=== PATIENT | female | born 1965 | race Two or more races ===

== ENCOUNTER 2016-09-06 21:02 | Emergency (ER) | payer MEDICAID, OTHER ==
[~2016-09-06] VITALS: Ht 152.4 cm; Wt 108.9 kg
[2016-09-06 21:25] VITALS: BP 213/82
[2016-09-06] MEDS ORDERED: cloNIDine HCL 0.1 MG TAB PO ONE (22:00)
[2016-09-06 23:23] LABS: INR 1.02 (0.9-1.15); Partial Thromboplastin Time 28.6 sec (22.64-33.71); Prothrombin Time 10.5 sec (9.37-12.3)
[2016-09-06 23:26] LABS: Albumin 2.4 g/dL (3.4-5.0); BUN/Creatinine Ratio 8.7; Calcium 7.5 mg/dL (8.5-10.1); Potassium 4.1 mmol/L (3.5-5.1)
[2016-09-06 23:28] LABS: Bilirubin, Total 0.2 mg/dL (0.2-1.0); Total Protein 7.6 g/dL (6.4-8.2)
[2016-09-06 23:30] LABS: Basophils # (auto) 0 uL; Basophils % (auto) 0.4 % (0.0-2.0); Eosinophils # (auto) 0.2 uL; Hematocrit 36.8 % (36.0-46.0); Hemoglobin 11.5 g/dL (12.2-16.2); Lymphocytes # (auto) 2.4 uL; Lymphocytes % (auto) 24.9 % (10.0-50.0); Mean Corpuscular Hemoglobin 28.4 pg (28.0-32.0); Mean Corpuscular Hgb Conc. 31.4 g/dL (32.0-36.0); Mean Corpuscular Volume 90.4 fL (80.0-100.0); Monocytes # (auto) 0.5 uL; Monocytes % (auto) 5.5 % (0.0-12.0); Neutrophils # (auto) 6.5 uL; Neutrophils % (auto) 67.2 % (37.0-80.0); Platelet Count (auto) 294 10^3/uL (140-450); Red Cell Distribution Width 16.3 % (11.6-16.0); White Blood Cell 9.7 10^3/uL (4.4-10.8)
== END 2016-09-07 03:45 | disposition left against medical advice (07) ==
LOC: ER 21:09
DX: R79.89 Other specified abnormal findings of blood chemistry (principal); Z53.21 Procedure and treatment not carried out due to patient leaving prior to being seen by health care provider
CPT/HCPCS: 36415; 80053; 82140; 85025; 85610; 85730

== ENCOUNTER 2018-11-01 01:07 | Inpatient (IN) | payer MEDICAID ==
[~2018-11-01] VITALS: Ht 152.4 cm; Wt 139.0 kg
[2018-11-01] MEDS ORDERED: cloNIDine HCL 0.1 MG TAB PO ONE (02:30)
[2018-11-01 03:03] LABS: Basophils # (auto) 0.1 uL; Basophils % (auto) 0.5 % (0.0-2.0); Eosinophils # (auto) 0.2 uL; Eosinophils % (auto) 1.6 % (0.0-7.0); Hematocrit 33.6 % (36.0-46.0); Hemoglobin 10.6 g/dL (12.2-16.2); Lymphocytes # (auto) 1.6 uL; Lymphocytes % (auto) 15.3 % (10.0-50.0); Mean Corpuscular Hemoglobin 30.8 pg (28.0-32.0); Mean Corpuscular Hgb Conc. 31.6 g/dL (32.0-36.0); Mean Corpuscular Volume 97.5 fL (80.0-100.0); Monocytes # (auto) 0.5 uL; Monocytes % (auto) 4.6 % (0.0-12.0); Neutrophils # (auto) 8.3 uL; Nucleated Red Blood Cells % 0.1 %; Platelet Count (auto) 233 10^3/uL (140-450); Red Blood Cells 3.44 10^6/uL (4.0-5.20); Red Cell Distribution Width 15.6 % (11.8-14.3); White Blood Cell 10.7 10^3/uL (4.4-10.8)
[2018-11-01 03:19] LABS: INR 0.94 (0.9-1.15); Partial Thromboplastin Time 28.2 sec (23.78-33.04); Prothrombin Time 10.1 sec (9.27-12.13)
[2018-11-01 03:22] LABS: Albumin 3.2 g/dL (3.4-5.0); Amylase 48 U/L (25-115); Anion Gap 8 (5-15); Blood Urea Nitrogen 51 mg/dL (7-18); Calcium 7.3 mg/dL (8.5-10.1); Carbon Dioxide 23 mmol/L (21-32); Chloride 105 mmol/L (98-107); Glucose 259 mg/dL (74-106); Lipase 140 U/L (73-393); Magnesium 2.7 mg/dL (1.6-2.6); Sodium 136 mmol/L (136-145)
[2018-11-01 03:28] LABS: Alanine Aminotransferase 25 U/L (13-56); Alkaline Phosphatase 112 U/L (45-117); Aspartate Aminotransferase 15 U/L (15-37); BUN/Creatinine Ratio 7.4; Bilirubin, Total 0.3 mg/dL (0.2-1.0); GFR African American 8 mL/min; GFR Non-African American 7 mL/min
[2018-11-01 03:34] LABS: Potassium 6.1 mmol/L (3.5-5.1)
[2018-11-01] MEDS ORDERED: ALBUTEROL SULF 2.5 MG/0.5ML(0.5%) NEB SOLN NEB STA (06:53)
[2018-11-01] MEDS ORDERED: SODIUM BICARBONATE 8.4% INJ 50ML SYRINGE IV ONE (07:00)
[2018-11-01] MEDS ORDERED: SODIUM POLYSTYRENE SULF 15GM/60ml SUSP or POWDER PO ONE ×3 (07:00→11:45)
[2018-11-01] MEDS ORDERED: PIPERACILLIN-TAZOB 3.375GM 100 ML IV ONE (07:00)
[2018-11-01] MEDS ORDERED: AZITHROMYCIN 500MG/ 250ML 250 ML IV ONE (07:00)
[2018-11-01] MEDS ORDERED: InsuLIN REG 1unit/0.01ml Soln (100units/ml) IV ONE ×2 (07:00→10:15)
[2018-11-01] MEDS ORDERED: DEXTROSE (50%) 50ML SYRG IV ONE ×2 (07:00→10:15)
[2018-11-01] MEDS ORDERED: CALCIUM GLUC 4.65meq/50ml D5AE 50 ML IV ONE (07:00)
[2018-11-01] MEDS ORDERED: HYDROcodone-ACET 5/325MG TAB PO PRN (09:30)
[2018-11-01] MEDS ORDERED: ACETAMINOPHEN 500 MG TAB PO PRN (09:30)
[2018-11-01] MEDS ORDERED: MORPHINE SULF INJ 2 MG/ML SYRINGE 1ML IV PRN (09:30)
[2018-11-01] MEDS ORDERED: AZITHROMYCIN 250 MG TAB PO ONE (09:30)
[2018-11-01] MEDS ORDERED: NITROGLYCERIN 0.4 MG SL TAB SL PRN (09:30)
[2018-11-01] MEDS ORDERED: hydrALAZINE HCL 20 MG/ML VL IV PRN (09:45)
[2018-11-01 09:59] LABS: BUN/Creatinine Ratio 7.3; Calcium 7.5 mg/dL (8.5-10.1)
[2018-11-01] MEDS ORDERED: LISINOPRIL 10 MG TAB PO SCH (10:00)
[2018-11-01] MEDS ORDERED: SODIUM BICARBONATE 8.4 % INJ 50ML VIAL IV ONE (10:15)
[2018-11-01] MEDS ORDERED: LEVOTHYROXINE SODIUM 100 MCG TAB PO ONE (10:15)
[2018-11-01] MEDS ORDERED: ALBUTEROL SULF 2.5 MG/0.5ML(0.5%) NEB SOLN NEB ONE (10:15)
[2018-11-01] MEDS: METOPROLOL TARTRATE 25 MG TAB PO SCH ×3 (10:26→22:45)
[2018-11-01] MEDS: PANTOPRAZOLE 40 MG/10 ML VIAL IV SCH (10:26)
[2018-11-01] MEDS: cefTRIAXone 1GM/50ML D5W 50 ML IV SCH (10:26)
[2018-11-01 10:40] VITALS: BP 151/73
[2018-11-01] MEDS ORDERED: SODIUM ZIRCONIUM CYCL 10 GM PAK PO ONE (11:45)
[2018-11-01] MEDS: CALCIUM ACETATE 667 MG CAP PO SCH ×2 (12:15→18:00)
[2018-11-01 12:27] LABS: Urine Amorphous Crystal FEW /hpf (None Seen); Urine Bacteria FEW /hpf (None Seen); Urine Blood Negative /uL (Negative); Urine Specific Gravity 1.013 (1.001-1.035); Urine WBC 4 /hpf (0 - 5)
[2018-11-01] MEDS: IPRATROPIUM BROM 0.5 MG/2.5ML INH SOL NEB SCH ×2 (12:56→18:00)
[2018-11-01] MEDS: ALBUTEROL SULF 2.5 MG/0.5ML(0.5%) NEB SOLN NEB SCH ×2 (12:56→18:00)
[2018-11-01] MEDS: MORPHINE SULF INJ 2 MG/ML SYRINGE 1ML IV PRN (14:44)
[2018-11-01] MEDS: ONDANSETRON HCL 4 MG/2 ML VIAL IV PRN (14:45)
[2018-11-01] MEDS ORDERED: SODIUM CHL 0.9% 1000 ML BAG XX ONE (16:15)
[2018-11-01] MEDS ORDERED: EPOETIN ALFA 10,000 UNIT/1 ML VIAL SC ONE (21:00)
[2018-11-01] MEDS: ATORVASTATIN 20 MG TAB PO SCH (22:00)
[2018-11-02 01:15] LABS: BUN/Creatinine Ratio 6.4; Calcium 7.3 mg/dL (8.5-10.1); Potassium 5.5 mmol/L (3.5-5.1)
[2018-11-02] MEDS ORDERED: CINA30TA2 PO (05:38)
[2018-11-02] MEDS ORDERED: BENA10TA9 PO (05:38)
[2018-11-02] MEDS ORDERED: SEVE800T PO (05:38)
[2018-11-02] MEDS ORDERED: HYDR50TA15 PO (05:38)
[2018-11-02] MEDS ORDERED: ERGO2000 PO (05:38)
[2018-11-02] MEDS ORDERED: LEVO175T31 PO (05:38)
[2018-11-02] MEDS ORDERED: ATOR40TA52 PO (05:38)
[2018-11-02] MEDS ORDERED: FURO20TA3 PO (05:38)
[2018-11-02] MEDS ORDERED: GLIM2TAB33 PO (05:38)
[2018-11-02] MEDS ORDERED: SEVE800T8 PO (05:38)
[2018-11-02 05:44] VITALS: BP 142/69
[2018-11-02] MEDS ORDERED: BISA-51 PO (05:45)
[2018-11-02] MEDS: ALBUTEROL SULF 2.5 MG/0.5ML(0.5%) NEB SOLN NEB SCH ×4 (06:39→22:16)
[2018-11-02] MEDS: IPRATROPIUM BROM 0.5 MG/2.5ML INH SOL NEB SCH ×3 (06:39→18:45)
[2018-11-02] MEDS: LEVOTHYROXINE SODIUM 100 MCG TAB PO SCH (06:45)
[2018-11-02] MEDS: MORPHINE SULF INJ 2 MG/ML SYRINGE 1ML IV PRN ×2 (06:52→20:13)
[2018-11-02 08:30] VITALS: BP 149/73
[2018-11-02] MEDS: PANTOPRAZOLE 40 MG/10 ML VIAL IV SCH (09:29)
[2018-11-02] MEDS: CALCIUM ACETATE 667 MG CAP PO SCH ×3 (09:29→18:09)
[2018-11-02] MEDS: METOPROLOL TARTRATE 25 MG TAB PO SCH ×2 (09:29→23:34)
[2018-11-02] MEDS: cefTRIAXone 1GM/50ML D5W 50 ML IV SCH (09:29)
[2018-11-02] MEDS ORDERED: SODIUM ZIRCONIUM CYCL 10 GM PAK PO ONE ×3 (10:00→15:15)
[2018-11-02] MEDS ORDERED: AZITHROMYCIN 250 MG TAB PO SCH (10:00)
[2018-11-02 11:15] LABS: Basophils # (auto) 0 uL; Basophils % (auto) 0.3 % (0.0-2.0); Eosinophils # (auto) 0.1 uL; Eosinophils % (auto) 1.6 % (0.0-7.0); Hematocrit 28.7 % (36.0-46.0); Hemoglobin 9.4 g/dL (12.2-16.2); Lymphocytes # (auto) 0.7 uL; Lymphocytes % (auto) 9.3 % (10.0-50.0); Mean Corpuscular Hemoglobin 31.8 pg (28.0-32.0); Mean Corpuscular Hgb Conc. 32.8 g/dL (32.0-36.0); Mean Corpuscular Volume 97.1 fL (80.0-100.0); Monocytes # (auto) 0.3 uL; Monocytes % (auto) 3.7 % (0.0-12.0); Neutrophils # (auto) 6.3 uL; Neutrophils % (auto) 85.1 % (37.0-80.0); Platelet Count (auto) 184 10^3/uL (140-450); Red Blood Cells 2.96 10^6/uL (4.0-5.20); Red Cell Distribution Width 15.6 % (11.8-14.3); White Blood Cell 7.4 10^3/uL (4.4-10.8)
[2018-11-02 11:31] LABS: BUN/Creatinine Ratio 6.6; Calcium 7.4 mg/dL (8.5-10.1)
[2018-11-02 11:52] LABS: Cholesterol 116 mg/dL (< 200); HDL Cholesterol 48 mg/dL (40-59); LDL Cholesterol 55 mg/dL (< 100); Triglycerides 161 mg/dL (< 150)
[2018-11-02 12:13] LABS: Potassium 6.4 mmol/L (3.5-5.1)
[2018-11-02 12:59] VITALS: BP 137/63
[2018-11-02] MEDS ORDERED: ALBUTEROL SULF 2.5 MG/0.5ML(0.5%) NEB SOLN NEB ONE (13:15)
[2018-11-02] MEDS ORDERED: SODIUM BICARBONATE 8.4% INJ 50ML SYRINGE IV ONE (13:15)
[2018-11-02] MEDS ORDERED: DEXTROSE (50%) 50ML SYRG IV ONE ×2 (13:15→17:15)
[2018-11-02] MEDS ORDERED: InsuLIN REG 1unit/0.01ml Soln (100units/ml) IV ONE ×2 (13:15→17:15)
[2018-11-02 17:01] VITALS: BP 155/65
[2018-11-02] MEDS ORDERED: CALCIUM GLUC 4.65meq/50ml D5AE 50 ML IV ONE (17:15)
[2018-11-02 20:00] VITALS: BP 154/67
[2018-11-02] MEDS: ONDANSETRON HCL 4 MG/2 ML VIAL IV PRN (20:13)
[2018-11-02 21:43] LABS: Calcium 7.5 mg/dL (8.5-10.1); Potassium 4.5 mmol/L (3.5-5.1)
[2018-11-02 22:00] VITALS: BP 167/95
[2018-11-02] MEDS: SODIUM ZIRCONIUM CYCL 10 GM PAK PO SCH (22:00)
[2018-11-02] MEDS: ATORVASTATIN 20 MG TAB PO SCH (23:33)
[2018-11-03] VITALS (7 sets, daily range): BP systolic 147–182; BP diastolic 61–91
[2018-11-03] MEDS: ALBUTEROL SULF 2.5 MG/0.5ML(0.5%) NEB SOLN NEB SCH ×6 (02:29→22:05)
[2018-11-03] MEDS: IPRATROPIUM BROM 0.5 MG/2.5ML INH SOL NEB SCH ×4 (06:07→22:05)
[2018-11-03] MEDS: SODIUM ZIRCONIUM CYCL 10 GM PAK PO SCH ×3 (06:54→22:32)
[2018-11-03] MEDS: LEVOTHYROXINE SODIUM 100 MCG TAB PO SCH (06:54)
[2018-11-03] MEDS: MORPHINE SULF INJ 2 MG/ML SYRINGE 1ML IV PRN ×3 (06:54→20:52)
[2018-11-03] MEDS: ONDANSETRON HCL 4 MG/2 ML VIAL IV PRN ×2 (06:55→20:52)
[2018-11-03 07:35] LABS: Basophils # (auto) 0.1 uL; Basophils % (auto) 0.8 % (0.0-2.0); Eosinophils # (auto) 0.2 uL; Hemoglobin 8.9 g/dL (12.2-16.2); Lymphocytes # (auto) 0.9 uL; Lymphocytes % (auto) 10.9 % (10.0-50.0); Mean Corpuscular Hemoglobin 31.7 pg (28.0-32.0); Mean Corpuscular Hgb Conc. 32.9 g/dL (32.0-36.0); Mean Corpuscular Volume 96.4 fL (80.0-100.0); Monocytes # (auto) 0.3 uL; Monocytes % (auto) 3.7 % (0.0-12.0); Neutrophils # (auto) 6.8 uL; Neutrophils % (auto) 82.6 % (37.0-80.0); Platelet Count (auto) 195 10^3/uL (140-450); Red Cell Distribution Width 14.8 % (11.8-14.3); White Blood Cell 8.3 10^3/uL (4.4-10.8)
[2018-11-03] MEDS: CALCIUM ACETATE 667 MG CAP PO SCH ×3 (08:00→17:09)
[2018-11-03 08:01] LABS: Calcium 7.4 mg/dL (8.5-10.1)
[2018-11-03 08:09] LABS: BUN/Creatinine Ratio 7.1
[2018-11-03 08:22] LABS: Potassium 5.9 mmol/L (3.5-5.1)
[2018-11-03] MEDS ORDERED: InsuLIN REG 1unit/0.01ml Soln (100units/ml) IV ONE (08:45)
[2018-11-03] MEDS ORDERED: LEVOFLOXACIN 500MG 100 ML IV ONE (08:45)
[2018-11-03] MEDS ORDERED: DEXTROSE (50%) 50ML SYRG IV ONE (08:45)
[2018-11-03] MEDS ORDERED: LEVO250T19 PO (10:08)
[2018-11-03] MEDS ORDERED: SODI5PAK PO (10:08)
[2018-11-03] MEDS ORDERED: MET25T PO (10:08)
[2018-11-03] MEDS: METOPROLOL TARTRATE 25 MG TAB PO SCH ×2 (12:07→22:32)
[2018-11-03] MEDS: PANTOPRAZOLE 40 MG/10 ML VIAL IV SCH (12:07)
[2018-11-03] MEDS: ATORVASTATIN 20 MG TAB PO SCH (22:31)
[2018-11-04] MEDS: IPRATROPIUM BROM 0.5 MG/2.5ML INH SOL NEB SCH ×2 (02:20→05:39)
[2018-11-04] MEDS: ALBUTEROL SULF 2.5 MG/0.5ML(0.5%) NEB SOLN NEB SCH ×2 (02:21→05:40)
[2018-11-04] MEDS: ONDANSETRON HCL 4 MG/2 ML VIAL IV PRN (02:35)
[2018-11-04] MEDS: MORPHINE SULF INJ 2 MG/ML SYRINGE 1ML IV PRN (02:36)
[2018-11-04 04:45] VITALS: BP 148/74
[2018-11-04] MEDS: SODIUM ZIRCONIUM CYCL 10 GM PAK PO SCH (06:05)
[2018-11-04] MEDS: LEVOTHYROXINE SODIUM 100 MCG TAB PO SCH (06:05)
[2018-11-04 09:00] VITALS: BP 135/61
[2018-11-05] MEDS ORDERED: LEVOFLOXACIN 250 MG TAB PO SCH (08:45)
== END 2018-11-04 10:40 | disposition home health service (06) | DRG 194 ==
LOC: EDBD 01:11 → ER 01:11 → MERGE 09:30 → TELE 09:30 → TELE-CENTR 11-02 05:25
PROVIDERS: ADMIT Nurse Practitioner Acute Care; ATTEND Internal Medicine
PROC: 5A1D70Z Performance of Urinary Filtration, Intermittent, Less than 6 Hours Per Day (ICD-10-PCS; principal; 2018-11-01)
PROC: 5A1D70Z Performance of Urinary Filtration, Intermittent, Less than 6 Hours Per Day (ICD-10-PCS; 2018-11-03)
DX: I13.2 Hypertensive heart and chronic kidney disease with heart failure and with stage 5 chronic kidney disease, or end stage renal disease (principal); J18.9 Pneumonia, unspecified organism; E11.22 Type 2 diabetes mellitus with diabetic chronic kidney disease; E11.42 Type 2 diabetes mellitus with diabetic polyneuropathy; N18.6 End stage renal disease; I50.9 Heart failure, unspecified; E11.51 Type 2 diabetes mellitus with diabetic peripheral angiopathy without gangrene; E44.1 Mild protein-calorie malnutrition; D63.8 Anemia in other chronic diseases classified elsewhere; E66.01 Morbid (severe) obesity due to excess calories; M54.9 Dorsalgia, unspecified; R91.8 Other nonspecific abnormal finding of lung field; E87.5 Hyperkalemia; G47.33 Obstructive sleep apnea (adult) (pediatric); E03.9 Hypothyroidism, unspecified; E78.5 Hyperlipidemia, unspecified; Z99.2 Dependence on renal dialysis; Z79.4 Long term (current) use of insulin; Z68.43 Body mass index [BMI] 50.0-59.9, adult
CPT/HCPCS: 36415; 71045; 71250; 74176; 76705; 80048; 80053; 80061; 81001; 82150; 82962; 83036; 83605; 83690; 83735; 83880; 84132; 84443; 84484; 85025; 85610; 85730; 87040; 87081; 90935; 93005; 93306; 94640; 96365; 96375; C9113; G0378; J0610; J0696; J0885; J1815; J1956; J2405; J2543

== ENCOUNTER → 2019-02-01 | Outpatient (CLI) | payer MEDICAID ==
[~2019-02-01] MED LIST: ATOR40TA52 PO; BENA10TA9 PO; BISA-51 PO; CINA30TA2 PO; ERGO2000 PO; FURO20TA3 PO; GLIM2TAB33 PO; LEVO175T31 PO; LEVO250T19 PO; MET25T PO; SEVE800T PO; SODI5PAK PO
== END | disposition home or self-care (01) ==
LOC: Rad HDHVI 11:00
PROVIDERS: ATTEND Internal Medicine
DX: I70.203 Unspecified atherosclerosis of native arteries of extremities, bilateral legs (principal)
CPT/HCPCS: 93926

== ENCOUNTER 2021-08-19 19:34 | Emergency (ER) | payer MEDICAID ==
[~2021-08-19] VITALS: Ht 152.4 cm; Wt 136.1 kg
[2021-08-19 19:34] VITALS: BP 190/70
[~2021-08-19 19:34] MED LIST changes: +BENA10TA15 PO; -BENA10TA9 PO; -LEVO175T31 PO; +LEVO175T66 PO
[2021-08-19] MEDS ORDERED: HYDROcodone-ACET 5/325MG TAB PO ONE (23:45)
== END 2021-08-20 00:21 | disposition home or self-care (01) ==
LOC: ER 19:42
DX: S61.402A Unspecified open wound of left hand, initial encounter (principal); I96 Gangrene, not elsewhere classified; I12.0 Hypertensive chronic kidney disease with stage 5 chronic kidney disease or end stage renal disease; E11.22 Type 2 diabetes mellitus with diabetic chronic kidney disease; N18.6 End stage renal disease; Z99.2 Dependence on renal dialysis; Z79.899 Other long term (current) drug therapy; Z79.2 Long term (current) use of antibiotics; X58.XXXA Exposure to other specified factors, initial encounter; Y93.89 Activity, other specified; Y92.89 Other specified places as the place of occurrence of the external cause; Y99.8 Other external cause status
CPT/HCPCS: 73130

== ENCOUNTER 2021-10-21 23:10 | Emergency (ER) | payer MEDICAID ==
[~2021-10-21] VITALS: Ht 152.4 cm; Wt 136.1 kg
[2021-10-21 23:55] LABS: Basophils # (auto) 0.1 10 ^3/uL (0-0.2); Basophils % (auto) 0.8 % (0.0-2.0); Eosinophils # (auto) 0.2 10 ^3/uL (0-0.8); Eosinophils % (auto) 2.3 % (0.0-7.0); Hematocrit 32.5 % (36.0-46.0); Hemoglobin 10.7 g/dL (12.2-16.2); Lymphocytes # (auto) 0.8 10 ^3/uL (0.4-5.4); Lymphocytes % (auto) 9.7 % (10.0-50.0); Mean Corpuscular Hemoglobin 30.1 pg (28.0-32.0); Monocytes # (auto) 0.4 10 ^3/uL (0-1.3); Monocytes % (auto) 5.3 % (0.0-12.0); Neutrophils # (auto) 6.8 10 ^3/uL (1.6-8.6); Neutrophils % (auto) 81.9 % (37.0-80.0); Red Blood Cells 3.57 10^6/uL (4.0-5.20); Red Cell Distribution Width 15.6 % (11.8-14.3); White Blood Cell 8.3 10^3/uL (4.4-10.8)
[2021-10-22 00:13] LABS: Albumin 3.1 g/dL (3.4-5.0); Calcium 7.3 mg/dL (8.5-10.1); Magnesium 2.2 mg/dL (1.6-2.6); Potassium 5.1 mmol/L (3.5-5.1)
[2021-10-22 00:18] LABS: BUN/Creatinine Ratio 8.2; Bilirubin, Total 0.4 mg/dL (0.2-1.0); Phosphorus 4.5 mg/dL (2.5-4.90); Total Protein 7.8 g/dL (6.4-8.2)
[2021-10-22 00:26] LABS: CRP High Sensitivity 4.56 mg/dL (< 0.3)
[2021-10-22] MEDS ORDERED: ceFAZolin 1GM/50ML 100 ML IV ONE (01:15)
[2021-10-22] MEDS ORDERED: HYDROcodone-ACET 10/325MG TAB PO ONE (04:30)
[2021-10-22 06:37] VITALS: BP 145/57
== END 2021-10-22 07:00 | disposition short-term general hospital (02) ==
LOC: ER 23:10
DX: I96 Gangrene, not elsewhere classified (principal); I12.0 Hypertensive chronic kidney disease with stage 5 chronic kidney disease or end stage renal disease; E11.22 Type 2 diabetes mellitus with diabetic chronic kidney disease; N18.6 End stage renal disease; Z79.899 Other long term (current) drug therapy; Z79.2 Long term (current) use of antibiotics
CPT/HCPCS: 36415; 71045; 73140; 73200; 80053; 83735; 84100; 85025; 85652; 86141; 87040; 96365; 99285; J0690